=== PATIENT | female | born 1955 | race Caucasian/White ===

== ENCOUNTER → 2020-01-11 | Outpatient (CLI) | payer OTHER ==
[~2020-01-11] MED LIST: ASPI81CH8 PO; ATOR1TAB21 PO; D200CAP2 PO; KELP150T2 PO; MAGN400T3 PO; OCEA200T2 PO; PRED10TA2 PO
== END ==
LOC: M WUC 17:13
PROVIDERS: ATTEND Physician Assistant
DX: Z79.899 Other long term (current) drug therapy (principal)

== ENCOUNTER 2020-01-18 10:10 | Inpatient (IN) | payer OTHER ==
[~2020-01-18] VITALS: Ht 165.1 cm; Wt 109.0 kg
[2020-01-18 10:48] LABS: BASO # 0.1 10^3/uL (0.0-0.2); BASO % 0.8 % (0.0-1.0); EOS # 0.3 10^3/uL (0.0-0.5); EOS % 3.3 % (0.0-3.0); HEMATOCRIT 42.5 % (36.0-47.0); LYMPH # 2.8 10^3/uL (1.5-5.0); LYMPH % 27.1 % (24.0-44.0); MEAN CORPUSCULAR HEMOGLOBIN 30.4 pg (27.0-33.0); MEAN CORPUSCULAR HGB CONC 32.9 g/dl (32.0-36.5); MEAN CORPUSCULAR VOLUME 92.2 fl (80.0-96.0); MONO # 0.7 10^3/uL (0.0-0.8); MONO % 6.5 % (0.0-5.0); NEUTROPHILS # 6.4 10^3/uL (1.5-8.5); NEUTROPHILS % 61.9 % (36.0-66.0); PLATELET COUNT, AUTOMATED 429 10^3/uL (150-450); RED BLOOD COUNT 4.61 10^6/uL (4.00-5.40); WHITE BLOOD COUNT 10.4 10^3/uL (4.0-10.0)
--- NOTE | 2020-01-18 10:55 | REP ---
INDICATION: CVA COMPARISON: None. TECHNIQUE: Portable AP view of the chest FINDINGS: No prior examinations are available for comparison and examination is limited by poor inspiratory effort as well as underpenetration. Left lower lobe airspace disease cannot be excluded. No pneumothorax. IMPRESSION: Limited examination cannot exclude left basilar airspace disease. <Electronically signed by Nahid Garcia > 01/18/20 [id number]
[2020-01-18 10:58] LABS: INR 0.92; PROTHROMBIN TIME 12.6 SECONDS (12.5-14.3)
[2020-01-18 10:59] LABS: PARTIAL THROMBOPLASTIN TIME 29.8 SECONDS (24.2-38.5)
--- NOTE | 2020-01-18 11:01 | REP ---
INDICATION: neuro symptoms. COMPARISON: None. TECHNIQUE: Helical scanning is acquired. 5 mm axial images were reformatted. Coronal MPR images were generated. FINDINGS: Bone window settings demonstrate an intact bony calvarium. There is no evidence of skull fracture or incidental bony calvarial lesion. The visualized paranasal sinuses appear clear. No intraorbital abnormality is seen. On soft tissue window setting images; the lateral, third, and fourth ventricles are normal in size and position. Kelley-white differentiation pattern is normal above and below the tentorium. There are is no evidence of intracranial hemorrhage. No mass, edema, infarction, or midline shift is seen. No extra-axial fluid collection is appreciated. IMPRESSION: Negative noncontrast head CT. <Electronically signed by Floyd Gu > 01/18/20 0161
[2020-01-18] MEDS ORDERED: ISOVUE-370 76% 100ML VIAL As Ordered ONE (11:02)
[2020-01-18 11:20] LABS: BLOOD UREA NITROGEN 13 MG/DL (7-18); CALCIUM LEVEL 9.5 MG/DL (8.8-10.2); CARBON DIOXIDE LEVEL 25 MEQ/L (21-32); CHLORIDE LEVEL 101 MEQ/L (98-107); CK-MB VALUE MASS < 1.0 NG/ML (<3.6); CPK CREATINE PHOSPHOKINASE 55 U/L (26-192); CREATININE FOR GFR 0.84 MG/DL (0.55-1.30); GLOMERULAR FILTRATION RATE > 60.0 (>45); GLUCOSE, FASTING 103 MG/DL (70-100); MB/CK RELATIVE INDEX 1.82 (< OR =4); POTASSIUM SERUM 4.2 MEQ/L (3.5-5.1); SODIUM LEVEL 134 MEQ/L (136-145); TROPONIN I < 0.02 NG/ML (< 0.10)
--- NOTE | 2020-01-18 12:02 | REP ---
INDICATION: neuro symptoms/neck pain ?dissection COMPARISON: None. TECHNIQUE: Contrast enhancement dose is 100 mL of intravenous Isovue 370. Helical scanning is acquired. 2 mm axial images are re-formatted. Coronal and sagittal MPR images are generated. Coronal and sagittal MIP and oblique MPR images are generated. 3D surface rendered images are generated and viewed rotationally. FINDINGS: Study is otherwise unremarkable. IMPRESSION: Tortuosity of the common carotid and internal carotid arteries bilaterally. Minimal vascular calcification. No significant stenosis seen. <Electronically signed by Floyd Gu > 01/18/20 [id number]
--- NOTE | 2020-01-18 12:08 | REP ---
INDICATION: neuro symptoms/neck pain ?dissection. COMPARISON: None. TECHNIQUE: CT contrast dose: 100 ml of intravenous Isovue 370. CT technique: Helical scanning is acquired. 2 mm axial images are reformatted. Maximal intensity projection and multiplanar re-formation images are generated along with 3-D surface rendered color imaging which is viewed rotational. FINDINGS: There is good opacification of the arch intracranial arterial tree. The distal cerebral arteries are patent and unremarkable. Basilar artery is slightly tortuous. Posterior cerebral and superior cerebellar vessels are unremarkable. The distal internal carotid arteries are intact and widely patent. No aneurysm is seen. Anterior and middle cerebral arteries are unremarkable. No vessel cut off or filling defect is seen. No aneurysm or arteriovenous malformation is noted. The dural sinuses are intact without filling defect or evidence stenosis. IMPRESSION: Unremarkable CT angiography of the brain. <Electronically signed by Floyd Gu > 01/18/20 [id number]
[2020-01-18] MEDS ORDERED: ASPIRIN 81 MG CHEW TABLET PO ONE (13:15)
[2020-01-18 13:51] LABS: CHOLESTEROL LEVEL 225 MG/DL (<200); CHOLESTEROL RISK RATIO 5.357 (<5); HDL CHOLESTEROL 42 MG/DL (>40); LDL CHOLESTEROL 155 MG/DL (<100); NON-HDL-C 183 MG/DL; TRIGLYCERIDES LEVEL 139 MG/DL (<150)
[2020-01-18] MEDS ORDERED: KELP150T2 PO (14:29)
[2020-01-18] MEDS ORDERED: OCEA200T2 PO (14:29)
[2020-01-18] MEDS ORDERED: D200CAP2 PO (14:29)
[2020-01-18] MEDS ORDERED: MAGN400T3 PO (14:29)
[2020-01-18 15:25] LABS: HEMOGLOBIN A1c 5.8 %
[2020-01-18 15:57] LABS: FREE T4 0.97 NG/DL (0.76-1.46)
[2020-01-18 16:00] VITALS: BP 130/82
--- NOTE | 2020-01-18 16:13 | HPEPDOC ---
[facility] Medical History & Physical Date of Admission Jan 18, 2020 Date of Service: Jan 18, 2020 Attending Physician: KAISER PUENTE MD History and Physical CHIEF COMPLAINT: Right sided facial weakness and slurred speech HISTORY OF PRESENT ILLNESS: Ms. Lopez is a 64 year old female with a PMH of arthritis and hypothyroidism is presenting with right sided facial weakness that started last night and slurred speech of one hour duration this morning. Pt states that 2 weeks ago she was vacuuming and felt a sharp pain in neck and down her back, 4 days after that incident, she started experiencing double vision and her right eye felt like it shutters. She saw an head porter and they put a patch over her right eye and was instructed to get an MRI and follow up. MRI was scheduled for next week and follow up appointment is tomorrow. However, the right sided facial weakness last night and slurred speech this morning is what prompted her to come to the ED. Last known well time was 8pm on 01/17/2020. Last night she states that she could not smile or grimace equally. This morning she admits to slurred speech and inability to spit this morning when brushing teeth. Pt states her speech slurs periodically and transiently. Pt also admits to pain in left forearm, ankles and back in which she describes it as transient, sudden, sharp and stabbing and attributes it to a pinched nerve Pt admits to headache following onset of double vision 2 weeks ago, attributing it to eye fatigue and diffuse abdominal pain that feels like pressure and gas. Pt denies weakness, numbness, tingling, balance difficulties, fever, chills, dizziness, chest pain or trouble breathing. Pt denies hx of stroke and takes a chewable 81mg daily aspirin. PAST MEDICAL HISTORY: Arthritis Hypothyroidism PAST SURGICAL HISTORY: Bilateral knee replacement Left Rotator cuff repair Tubal ligation SOCIAL HISTORY: Tobacco use smoked cigarettes between the ages of [age] years old. Alcohol occasionally, 2 glasses of wine a month Recreational drug use none FAMILY HISTORY: Father Hx of Parkinsons disease and HLD Mother Hx of diabetes and dementia Paternal grandfather unknown heart condition, at age 60 due to heart condition Paternal grandmother - atherosclerosis ALLERGIES: Sulfa containing medications, cockroaches, dust mites, shell fish REVIEW OF SYSTEMS: CONSTITUTIONAL: Denies fever, chills, and weight changes. HEENT: Admits to headache following onset of double vision. Reports seeing a g ray cloth out of patched eye in low light condition that she knew wasnt there. CARDIOVASCULAR: Denies chest pain, palpitations, and racing heart. RESPIRATORY: Denies trouble breathing, cough, and wheezing. GASTROINTESTINAL: Admits to diffuse, migratory abdominal pain attributed to gas. Denies diarrhea, constipation, changes to BM, nausea and blood in stool. GENITOURINARY: Denies dysuria and hematuria. SKIN: Denies skin changes, rashes, lesions, wounds and itching. MUSCULOSKELETAL: Admits to joint pain from arthritis and pain down spine. NEUROLOGICAL: Denies numbness and tingling in hands and feet. Admits to slurred speech and left facial weakness and diplopia. PSYCHIATRIC: Denies anxiety and depression. OBJECTIVE: CONSTITUTIONAL: Appears comfortable lying in bed with no respiratory distress. HEENT: PERRL. Difficulty tracking laterally with right eye (weakness in right lateral rectus muscle). No difficulty swallowing. Moist mucus membranes. NECK: Supple. No lymphadenopathy present. CARDIOVASCULAR: S1S2 normal. RRR. No murmurs, rubs or gallops. No edema noted. RESPIRATORY: Clear to auscultation in all lung harris. No wheezing, rhonchi or rales appreciated. GASTROINTESTINAL: Soft, nontender, nondistended abdomen. Normoactive bowel sounds heard in all 4 quadrants. SKIN: No rashes, lesions or wounds appreciated. MUSCULOSKELETAL: Normal ROM in all joints. NEUROLOGICAL: AAO x3, Inward right eye deviation and unable to track laterally (CN ). Inability to use facial muscles on left side of face with sparing of forehead (CN VII). All other CN intact. 5/5 muscle strength equal and bilateral in upper and lower extremities. PSYCHIATRIC: Normal mood and affect LABORATORY DATA: See below MICROBIOLOGY: See below ASSESSMENT: Ms. Lopez is a 64 year old female with a PMH of arthritis and hypothyroidism presents with right sided facial weakness and slurred speech was found to have weakness in CN and VII concerning for CVA. Pt admitted for further stroke workup. PLAN: # Left facial nerve weakness secondary to CVA vs [place] palsy - Head Ct was negative. CTA head and neck was negative. - MRI w/o contrast pending - High total cholesterol 225 mg/dL. High LDL cholesterol 155 mg/dL. High cholesterol/HDL ratio 5.357. - PT, INR and aPTT wnl. - Normal ECG. Continue 48 hr telemetry. Consider computer terminal operator cardiac monitoring if no stroke cause is identified - Neuro checks Q4H - ASA 325 mg PO daily. Atorvastatin 40 mg PO. Consider starting Plavix after 24 hours. - Echo with bubble study pending - PT/OT/ST evaluations - ED provider discussed case with Dr. Watson, neurology, who recommended r/o Lyme disease and Sarcoidosis - Lyme disease IgG/IgM antibodies pending - FREDY levels pending # Diplopia - Right abducens nerve weakness - Following ophthalmology - Unclear if this is related to her acute presenting symptoms # Hypothyroidism - Not currently being treated with medication. Was on levothyroxine but felt it wasnt helping so she discontinued - TSH and T4 level pending # Obesity - BMI 40.3 kg/m2 - complicates care. f/u outpatient with PCP DVT PROPHYLAXIS: Lovenox 40 mg daily DISPOSITION: Pending MRI results, PT/OT/ST eval and clinical improvment Vital Signs Vital Signs Date Time Temp Pulse Resp B/P (MAP) Pulse Ox O2 Delivery O2 Flow Rate FiO2 01/18/20 14:30 65 133/80 (97) 99 01/18/20 10:37 16 01/18/20 10:11 98.7 Room Air Laboratory Data Labs 24H Laboratory Tests 2 01/18/20 10:34: Prothrombin Time 12.6, Prothromb Time International Ratio 0.92, Activated Partial Thromboplast Time 29.8, Anion Gap 8, Glomerular Filtration Rate > 60.0, Calcium Level 9.5, Total Creatine Kinase 55, Creatine Kinase MB < 1.0, Creatine Kinase MB Relative Index 1.82, Troponin I < 0.02, Triglycerides Level 139, Total Cholesterol 225H, LDL Cholesterol 155H, Non-HDL Cholesterol (LDL + VLDL) 183, Total HDL Cholesterol 42, Cholesterol/HDL Ratio 5.357H, Thyroid Stimulating Hormone (TSH) 8.100H, Free Thyroxine 0.97 01/18/20 10:35: Immature Granulocyte % (Auto) 0.4, Neutrophils (%) (Auto) 61.9, Lymphocytes (%) (Auto) 27.1, Monocytes (%) (Auto) 6.5H, Eosinophils (%) (Auto) 3.3H, Basophils (%) (Auto) 0.8, Neutrophils # (Auto) 6.4, Lymphocytes # (Auto) 2.8, Monocytes # (Auto) 0.7, Eosinophils # (Auto) 0.3, Basophils # (Auto) 0.1, Nucleated Red Blood Cells % (auto) 0.0, Estimated Mean Plasma Glucose 120H, Hemoglobin A1c 5.8 01/18/20 11:17: Bedside Glucose (Misc Panel) 91 01/18/20 11:18: Coronavirus (COVID-19)(PCR) NEGATIVE CBC/BMP Laboratory Tests 01/18/20 10:34 01/18/20 10:35 Home Medications Scheduled Cholecalciferol (Vitamin D3) (Vitamin D3) 50 Mcg Capsule, 2,000 UNITS PO QHS Iodine (Kelp) 150 Mcg Tablet, 150 MCG PO QHS Magnesium Oxide (Magnesium Oxide) 400 Mg Tablet, 400 MG PO QHS Selenium (Selenium) 200 Mcg Tablet, 200 MCG PO QHS Allergies Coded Allergies: Sulfa (Sulfonamide Antibiotics) (Verified Allergy, Unknown, hives, 01/18/20) shellfish derived (Verified Allergy, Unknown, hives/swelling, 01/18/20) A-FIB/CHADSVASC A-FIB History Current/History of A-Fib/PAF?: NEVILLE Jiang D.O. Jan 18, 2020 16:13
--- NOTE | 2020-01-18 16:38 | REPVR ---
PROCEDURE INFORMATION: Exam: MR Head Without Contrast Exam date and time: 01/18/2020 3:37 PM Age: 64 years old Clinical indication: Weakness, facial; Additional info: Facial weak left/eom impaired right TECHNIQUE: Imaging protocol: MR of the head without contrast. COMPARISON: CT Head without contrast 01/18/2020 10:36 AM FINDINGS: Brain: Normal. No acute infarct. No hemorrhage. No significant white matter disease. No edema. Cerebral ventricles: Normal. No ventriculomegaly. Bones/joints: Unremarkable. Paranasal sinuses: Normal as visualized. No acute sinusitis. Mastoid air cells: Normal as visualized. No mastoid effusion. Orbits: Unremarkable. Soft tissues: Unremarkable. IMPRESSION: No acute findings. Electronically signed by: Alo Jones On 01/18/2020 16:38:30 PM
--- NOTE | 2020-01-18 16:42 | REPVR ---
PROCEDURE INFORMATION: Exam: MR Angiogram Head Without Contrast, Arteries Exam date and time: 01/18/2020 3:16 PM Age: 64 years old Clinical indication: Weakness; Additional info: Facial weakness left eom impaired right TECHNIQUE: Imaging protocol: MR angiogram head without contrast. Exam focused on the arteries. COMPARISON: CT ANGIO HEAD 01/18/2020 11:27 AM FINDINGS: ANTERIOR CIRCULATION: Right internal carotid artery: Intracranial segment is patent with no significant stenosis. No aneurysm. Right middle cerebral artery: No occlusion or significant stenosis. No aneurysm. Right anterior cerebral artery: No occlusion or significant stenosis. No aneurysm. Left internal carotid artery: Intracranial segment is patent with no significant stenosis. No aneurysm. Left middle cerebral artery: No occlusion or significant stenosis. No aneurysm. Left anterior cerebral artery: No occlusion or significant stenosis. No aneurysm. POSTERIOR CIRCULATION: Right vertebral artery: No occlusion or significant stenosis. No aneurysm. Left vertebral artery: No occlusion or significant stenosis. No aneurysm. Basilar artery: No occlusion or significant stenosis. No aneurysm. Right posterior cerebral artery: No occlusion or significant stenosis. No aneurysm. Left posterior cerebral artery: No occlusion or significant stenosis. No aneurysm. Other vasculature: origin of bilateral posterior cerebral arteries. IMPRESSION: No occlusion or stenosis of intracranial arteries. Electronically signed by: Alo Jones On 01/18/2020 16:42:48 PM
[2020-01-18] MEDS: ACETAMINOPHEN TAB 650MG DOSE (2X325MG) PO PRN ×2 (17:47→21:57)
--- NOTE | 2020-01-18 19:08 | ECGEPIP ---
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
[2020-01-18 20:00] VITALS: BP_SYST 126; BP_SYST 132; BP_DIAS 77; BP_DIAS 85
[2020-01-18 20:18] VITALS: BP 141/77
[2020-01-18] MEDS ORDERED: ATORVASTATIN 20 MG TAB PO SCH (21:00)
[2020-01-18] MEDS ORDERED: LIDOCAINE 5% (LIDODERM) PATCH TD ONE (22:00)
[2020-01-18] MEDS ORDERED: traMADol 50 MG TAB PO ONE (23:30)
[2020-01-19] VITALS: BP_SYST 126; BP_SYST 135; BP_DIAS 77; BP_DIAS 79
[2020-01-19 04:00] VITALS: BP 138/86
[2020-01-19 06:00] LABS: HEMATOCRIT 38.5 % (36.0-47.0); HEMOGLOBIN 12.6 g/dl (12.0-15.5); MEAN CORPUSCULAR HEMOGLOBIN 29.9 pg (27.0-33.0); MEAN CORPUSCULAR HGB CONC 32.7 g/dl (32.0-36.5); MEAN CORPUSCULAR VOLUME 91.4 fl (80.0-96.0); PLATELET COUNT, AUTOMATED 371 10^3/uL (150-450); RED BLOOD COUNT 4.21 10^6/uL (4.00-5.40); WHITE BLOOD COUNT 9.1 10^3/uL (4.0-10.0)
[2020-01-19 06:27] LABS: BLOOD UREA NITROGEN 17 MG/DL (7-18); CALCIUM LEVEL 9.2 MG/DL (8.8-10.2); CARBON DIOXIDE LEVEL 27 MEQ/L (21-32); CHLORIDE LEVEL 100 MEQ/L (98-107); CREATININE FOR GFR 0.72 MG/DL (0.55-1.30); GLOMERULAR FILTRATION RATE > 60.0 (>45); GLUCOSE, FASTING 109 MG/DL (70-100); POTASSIUM SERUM 4.1 MEQ/L (3.5-5.1); SODIUM LEVEL 132 MEQ/L (136-145)
[2020-01-19 08:00] VITALS: BP 182/84
[2020-01-19] MEDS ORDERED: ENOXAPARIN 40MG/0.4ML SYRINGE (J1650 PER 10MG) SC SCH (09:00)
[2020-01-19] MEDS ORDERED: ASPIRIN 81 MG CHEW TABLET PO SCH (09:00)
[2020-01-19] MEDS ORDERED: **NOTE PATIENT COMMENT** MISC XX ONE (10:00)
[2020-01-19 12:00] VITALS: BP 148/82
[2020-01-19] MEDS: ACETAMINOPHEN TAB 650MG DOSE (2X325MG) PO PRN (12:29)
[2020-01-19 15:07] LABS: ANGIOTENSIN 1 CONVERTING ENZYM 39 U/L (14-82); Lyme Disease IgG/IgM Antibodie <0.91 ISR (0.00-0.90); Lyme Disease IgM Ab Quantitati <0.80 index (0.00-0.79)
[2020-01-19] MEDS ORDERED: ATOR1TAB21 PO (15:51)
[2020-01-19] MEDS ORDERED: PRED10TA2 PO (15:51)
[2020-01-19] MEDS ORDERED: ASPI81CH8 PO (15:51)
--- NOTE | 2020-01-19 17:58 | DS.PDOC ---
Discharge Summary General Date of Admission Jan 18, 2020 at 14:07 Date of Discharge 01/19/2020 Attending Physician: KAISER PUENTE MD Discharge Summary Discharge Summary: Haritha Lopez PROCEDURES PERFORMED DURING STAY: NONE ADMITTING DIAGNOSIS: CVA vs. [place] Palsy Diplopia Arthritis Hypothyroidism, not on medication DISCHARGE DIAGNOSIS: [place] Palsy Diplopia Arthritis Subclinical hypothyroidism, not on medication COMPLICATIONS/CHIEF COMPLAINT: Right sided facial weakness and slurred speech HISTORY OF PRESENT ILLNESS: Ms. Lopez is a 64 year old female with a PMH of arthritis and hypothyroidism is presenting with right sided facial weakness that started last night and slurred speech of one hour duration this morning. Pt states that 2 weeks ago she was vacuuming and felt a sharp pain in neck and down her back, 4 days after that incident, she started experiencing double vision and her right eye felt like it shutters. She saw an machine applicator cementer and they put a patch over her right eye and was instructed to get an MRI and follow up. MRI was scheduled for next week and follow up appointment is tomorrow. However, the right sided facial weakness last night and slurred speech this morning is what prompted her to come to the ED. Last known well time was 8pm on 01/17/2020. Last night she states that she could not smile or grimace equally. This morning she admits to slurred speech and inability to spit this morning when brushing teeth. Pt states her speech slurs periodically and transiently. Pt also admits to pain in left forearm, ankles and back in which she describes it as transient, sudden, sharp and stabbing and attributes it to a pinched nerve Pt admits to headache following onset of double vision 2 weeks ago, attributing it to eye fatigue and diffuse abdominal pain that feels like pressure and gas. Pt denies weakness, numbness, tingling, balance difficulties, fever, chills, dizziness, chest pain or trouble breathing. Pt denies hx of stroke and takes a chewable 81mg daily aspirin. HOSPITAL COURSE: Ms. Lopez was admitted to the hospital to rule out a CVA. On admission, pt had inability to use facial muscles on left side of face indicating weakness of left CN VII. Pt also admitted to unilateral diplopia of right eye and she has a patch covering it, which resolves the diplopia. Stroke work-up was started and aspirin 325mg PO and Atorvastatin 40 mg PO were begun. ECG was normal and 48 hr telemetry was ordered to monitor for any cardiac cali nts. CT head and CT-A head and neck were normal with no acute findings. Per neurology recommendation to ED provider, Lyme disease IgG/IgM antibodies and FREDY levels were ordered as possible etiology for [place] palsy, and both were negative. Significant lab work demonstrated high total cholesterol 225 mg/dL, high LDL cholesterol 155 mg/dL, High cholesterol/LDL ratio 5.357. MRI w/o contrast was negative with no acute findings. Echo with bubble study is pending. At this time, CVA was considered not likely and more likely [place] palsy. Per neurology recommendations, pt likely has [place] palsy and should be discharged with an oral prednisone taper, Atorvastatin 20 mg and Aspirin 81 mg. Pt was deemed stable for discharge and instructed to follow up with her PCP and continue seeing machine applicator cementer for the diplopia. DISCHARGE MEDICATIONS: Please see below. ALLERGIES: Please see below. PHYSICAL EXAMINATION ON DISCHARGE: VITAL SIGNS: Please see below. GENERAL: Appears comfortable lying in bed with no respiratory distress. HEENT: PERRL. EOM intact. Moist mucus membranes. NECK: No difficulty swallowing. Supple. No lymphadenopathy present. CARDIOVASCULAR EXAMINATION: S1S2 normal. RRR. No murmurs, rubs or gallops. No edema noted RESPIRATORY EXAMINATION: Clear to auscultation in all lung harris. No wheezing, rhonchi or rales appreciated. ABDOMINAL EXAMINATION: Soft, nontender, nondistended abdomen. Normoactive bowel sounds heard in all 4 quadrants. EXTREMITIES: Normal ROM in all joints. SKIN: No rashes, lesions or wounds appreciated. NEUROLOGICAL EXAMINATION: AAO x3 Inability to use facial muscles on left side of face, including unequal strength in forehead(CN VII). All other CN intact. 5/5 muscle strength equal and bilateral in upper and lower extremities. PSYCHIATRIC EXAMINATION: Normal mood and affect. LABORATORY DATA: Please see below. IMAGING: (per radiologist interpretation) - CXR (01/18/2020) - Limited examination cannot exclude left basilar airspace disease. - CT head w/o contrast (01/18/2020) - Negative noncontrast head CT. - CTA Neck (01/18/2020) - Tortuosity of the common carotid and internal carotid arteries bilaterally. Minimal vascular calcification. No significant stenosis seen. - CTA Head (01/18/2020) - Unremarkable CT angiography of the brain. - Brain MRI w/o contrast (01/18/2020) - No acute findings. - MRA brain w/o contrast - No occlusion or stenosis of intracranial arteries. PROGNOSIS: Fair ACTIVITY: As tolerated DIET: Regular DISPOSITION/DISCHARGE PLAN: discharge to home DISCHARGE INSTRUCTIONS: 1. Follow-up with your PCP in 7-10 days 2. Follow up with Opthalmology in 1 week 3. Referral to neurology for [place]'s palsy 4. Please sweet pickled fruit maker and complete steriod taper for [place]'s palsy. 5. Please take all medications as prescribed. 6. If your symptoms return or your condition worsens, please call your PCP or return to the ED for further evaluation. ITEMS TO FOLLOWUP ON OUTPATIENT: -Follow up with PCP regarding cholesterol management, MSK pain, and elevated TSH -Follow up with ophthalmology regarding diplopia DISCHARGE CONDITION: Stable. TIME SPENT ON DISCHARGE: Greater than 35 minutes. Vital Signs/I&Os Vital Signs Date Time Temp Pulse Resp B/P (MAP) Pulse Ox O2 Delivery O2 Flow Rate FiO2 01/19/20 12:00 97.9 63 18 148/82 (104) 98 Room Air I&O- Last 24 Hours up to 6 AM 01/19/20 06:00 Intake Total 300 ml Balance 300 ml Laboratory Data Labs 24H Laboratory Tests 2 01/19/20 05:39: Nucleated Red Blood Cells % (auto) 0.0, Anion Gap 5L, Glomerular Filtration Rate > 60.0, Calcium Level 9.2 CBC/BMP Laboratory Tests 01/19/20 05:39 Discharge Medications Scheduled Aspirin (Children's Aspirin) 81 Mg Tab.chew, 81 MG PO DAILY Atorvastatin Calcium (Atorvastatin Calcium) 20 Mg Tablet, 20 MG PO QHS Cholecalciferol (Vitamin D3) (Vitamin D3) 50 Mcg Capsule, 2,000 UNITS PO QHS, (Reported) Iodine (Kelp) 150 Mcg Tablet, 150 MCG PO QHS, (Reported) Magnesium Oxide (Magnesium Oxide) 400 Mg Tablet, 400 MG PO QHS, (Reported) Prednisone (Prednisone) 10 Mg Tablet, 10 MG PO TAPER Take 6 tabs daily x 2 days, then 4 tabs daily x 2 days, then 2 tabs daily x 2 days, then 1 tab daily x 2 days and stop Selenium (Selenium) 200 Mcg Tablet, 200 MCG PO QHS, (Reported) Allergies Coded Allergies: Sulfa (Sulfonamide Antibiotics) (Verified Allergy, Unknown, hives, 01/18/20) shellfish derived (Verified Allergy, Unknown, hives/swelling, 01/18/20) NEVILLE TADEO D.O. Jan 19, 2020 16:25
[2020-01-19] MEDS ORDERED: ATORVASTATIN 20 MG TAB PO SCH (21:00)
[2020-01-20] MEDS ORDERED: TRAM50TA2 PO (11:37)
== END 2020-01-19 17:42 | disposition home or self-care (01) | DRG 48 ==
LOC: M ED 10:10 → M ED INP 14:07 → ENRESERV 14:36 → M PCU 15:30
PROVIDERS: ADMIT Internal Medicine; ATTEND Internal Medicine
DX: G51.0 Bell's palsy (principal); Z68.41 Body mass index [BMI] 40.0-44.9, adult; M19.90 Unspecified osteoarthritis, unspecified site; H53.2 Diplopia; Z79.899 Other long term (current) drug therapy; Z88.2 Allergy status to sulfonamides; Z91.013 Allergy to seafood; Z96.653 Presence of artificial knee joint, bilateral; Z87.891 Personal history of nicotine dependence; E03.9 Hypothyroidism, unspecified; Z91.14 Patient's other noncompliance with medication regimen; E66.9 Obesity, unspecified

== ENCOUNTER 2020-01-20 06:43 | Emergency (ER) | payer OTHER ==
[~2020-01-20] VITALS: Ht 165.1 cm; Wt 110.7 kg
[2020-01-20] MEDS ORDERED: NS 500 ML IV ONE (07:30)
[2020-01-20] MEDS ORDERED: ONDANSETRON 4MG/2ML VIAL IV ONE (07:30)
[2020-01-20 08:14] LABS: BASO # 0.1 10^3/uL (0.0-0.2); BASO % 0.4 % (0.0-1.0); EOS # 0.1 10^3/uL (0.0-0.5); EOS % 0.6 % (0.0-3.0); HEMATOCRIT 42.2 % (36.0-47.0); HEMOGLOBIN 14.4 g/dl (12.0-15.5); LYMPH # 2.1 10^3/uL (1.5-5.0); LYMPH % 17.5 % (24.0-44.0); MEAN CORPUSCULAR HEMOGLOBIN 30.6 pg (27.0-33.0); MEAN CORPUSCULAR HGB CONC 34.1 g/dl (32.0-36.5); MEAN CORPUSCULAR VOLUME 89.6 fl (80.0-96.0); MONO # 0.8 10^3/uL (0.0-0.8); MONO % 6.3 % (0.0-5.0); NEUTROPHILS # 9.2 10^3/uL (1.5-8.5); NEUTROPHILS % 74.9 % (36.0-66.0); PLATELET COUNT, AUTOMATED 343 10^3/uL (150-450); RED BLOOD COUNT 4.71 10^6/uL (4.00-5.40); WHITE BLOOD COUNT 12.2 10^3/uL (4.0-10.0)
[2020-01-20] MEDS ORDERED: MORPHINE 2 MG/ML 1ML VIAL (J2270) IV ONE (08:15)
[2020-01-20] MEDS ORDERED: predniSONE 20 MG TAB PO ONE (08:15)
[2020-01-20] MEDS ORDERED: ACETAMINOPHEN 500 MG TAB PO ONE (08:30)
[2020-01-20 08:41] LABS: ALBUMIN 3.8 GM/DL (3.2-5.2); ALT/SGPT 18 U/L (12-78); BILIRUBIN,DIRECT < 0.1 MG/DL (0.0-0.2); BILIRUBIN,TOTAL 0.8 MG/DL (0.2-1.0); BLOOD UREA NITROGEN 17 MG/DL (7-18); CALCIUM LEVEL 9.1 MG/DL (8.8-10.2); CARBON DIOXIDE LEVEL 21 MEQ/L (21-32); CHLORIDE LEVEL 98 MEQ/L (98-107); CK-MB VALUE MASS < 1.0 NG/ML (<3.6); CPK CREATINE PHOSPHOKINASE 130 U/L (26-192); CREATININE FOR GFR 0.67 MG/DL (0.55-1.30); GLOMERULAR FILTRATION RATE > 60.0 (>45); GLUCOSE, FASTING 106 MG/DL (70-100); LIPASE 160 U/L (73-393); MB/CK RELATIVE INDEX 0.77 (< OR =4); SODIUM LEVEL 128 MEQ/L (136-145); TOTAL PROTEIN 8.6 GM/DL (6.4-8.2); TROPONIN I < 0.02 NG/ML (< 0.10)
--- NOTE | 2020-01-20 08:53 | REP ---
INDICATION: RUQ pain into mid back. COMPARISON: None. TECHNIQUE: Transabdominal right upper quadrant sonography. FINDINGS: Scanning through the right upper quadrant of the abdomen demonstrates a normal sized, thin-walled gallbladder without evidence of stone or polyp. Common bile duct is normal measuring 0.5 cm in greatest diameter. No focal liver lesion is seen. Liver size is normal. No pancreatic abnormality is observed. No right renal abnormality is seen. There is no evidence of ascites. The right kidney measures 9.3 x 4.8 x 4.9 cm. IMPRESSION: Negative right upper quadrant sonography. <Electronically signed by Floyd Gu > 01/20/20 [id number]
[2020-01-20] MEDS ORDERED: ISOVUE-370 76% 100ML VIAL As Ordered ONE (09:16)
--- NOTE | 2020-01-20 09:50 | REP ---
INDICATION: severe upper abd pain into back, n, v. COMPARISON: Today's right upper quadrant sonography.. TECHNIQUE: Helical scanning was acquired and 4 mm axial images are re-formatted. Coronal and sagittal MPR images were generated and reviewed. The contrast enhancement dose is 100 mL of intravenous Isovue 370. FINDINGS: Preliminary digital contracts law professor radiograph is unremarkable. Normal bowel gas pattern. The lung bases are clear on axial CT images. The liver is normal in size homogeneous in texture. Spleen is normal in size and homogeneous as well. No abnormality is noted in the pancreas. There is a descending duodenal diverticulum. No evidence of stent gallstone by CT. Normal adrenal glands are seen bilaterally. Kidneys enhance symmetrically and are morphologically intact. No retroperitoneal mass or adenopathy is observed. Normal caliber aorta. There is left colonic diverticulosis without CT evidence of diverticulitis. Small and large bowel loops are otherwise unremarkable. There is evidence of a radiopaque appendicolith in the right lower quadrant but there is no evidence of appendiceal and inflation dilation or fluid distention. No uterine or ovarian abnormality is seen. Urinary bladder is intact. There are degenerative spondylosis changes in the lumbar spine. No acute bony abnormality is appreciated. IMPRESSION: Left colonic diverticulosis without CT evidence of diverticulitis. No evidence of appendiceal inflammation. Small appendicollith. Otherwise negative CT abdomen and pelvis with IV contrast. <Electronically signed by Floyd Gu > 01/20/20 0997
[2020-01-20] MEDS ORDERED: traMADol 50 MG TAB As Ordered ONE (10:50)
[2020-01-20] MEDS ORDERED: traMADol 50 MG TAB PO ONE (11:00)
[2020-01-20] MEDS ORDERED: TRAM50TA2 PO (11:37)
[2020-01-20 11:40] VITALS: BP 121/73
== END 2020-01-20 10:20 | disposition home or self-care (01) ==
LOC: M ED 06:43
DX: E87.0 Hyperosmolality and hypernatremia (principal); K57.30 Diverticulosis of large intestine without perforation or abscess without bleeding; G51.0 Bell's palsy; E78.5 Hyperlipidemia, unspecified; M19.90 Unspecified osteoarthritis, unspecified site; Z79.899 Other long term (current) drug therapy; Z91.013 Allergy to seafood; Z88.2 Allergy status to sulfonamides; Z83.3 Family history of diabetes mellitus
CPT/HCPCS: 36415; 74177; 76705; 80048; 80076; 82550; 82553; 83690; 83735; 84484; 85025; 96374; 99284; J2405; Q9967

== ENCOUNTER → 2020-02-02 | Outpatient (CLI) | payer OTHER ==
[~2020-02-02] MED LIST changes: +TRAM50TA2 PO
== END ==
LOC: M WUC 14:43
PROVIDERS: ATTEND Ophthalmology
DX: Z11.9 Encounter for screening for infectious and parasitic diseases, unspecified (principal)

== ENCOUNTER → 2020-05-12 | Outpatient (CLI) | payer OTHER ==
[2020-05-12 11:27] LABS: BASO # 0.1 10^3/uL (0.0-0.2); BASO % 1.8 % (0.0-1.0); EOS # 0.5 10^3/uL (0.0-0.5); EOS % 7.2 % (0.0-3.0); HEMATOCRIT 41.8 % (36.0-47.0); HEMOGLOBIN 13.5 g/dl (12.0-15.5); LYMPH # 2.8 10^3/uL (1.5-5.0); LYMPH % 39.6 % (24.0-44.0); MEAN CORPUSCULAR HEMOGLOBIN 30.5 pg (27.0-33.0); MEAN CORPUSCULAR HGB CONC 32.3 g/dl (32.0-36.5); MEAN CORPUSCULAR VOLUME 94.4 fl (80.0-96.0); MONO # 0.6 10^3/uL (0.0-0.8); MONO % 7.9 % (2.0-8.0); NEUTROPHILS # 3.1 10^3/uL (1.5-8.5); NEUTROPHILS % 43.1 % (36.0-66.0); PLATELET COUNT, AUTOMATED 398 10^3/uL (150-450); RED BLOOD COUNT 4.43 10^6/uL (4.00-5.40); WHITE BLOOD COUNT 7.2 10^3/uL (4.0-10.0)
[2020-05-12 12:24] LABS: ALBUMIN 4.1 GM/DL (3.2-5.2); ALT/SGPT 22 U/L (12-78); BILIRUBIN,TOTAL 0.6 MG/DL (0.2-1.0); BLOOD UREA NITROGEN 14 MG/DL (7-18); CARBON DIOXIDE LEVEL 29 MEQ/L (21-32); CHLORIDE LEVEL 106 MEQ/L (98-107); CHOLESTEROL LEVEL 244 MG/DL (<200); CHOLESTEROL RISK RATIO 5.304 (<5); CREATININE FOR GFR 0.76 MG/DL (0.55-1.30); GLOMERULAR FILTRATION RATE > 60.0 (>45); GLUCOSE, FASTING 93 MG/DL (70-100); HDL CHOLESTEROL 46 MG/DL (>40); LDL CHOLESTEROL 166 MG/DL (<100); NON-HDL-C 198 MG/DL; POTASSIUM SERUM 5.1 MEQ/L (3.5-5.1); SODIUM LEVEL 140 MEQ/L (136-145); TOTAL PROTEIN 7.4 GM/DL (6.4-8.2); TRIGLYCERIDES LEVEL 158 MG/DL (<150)
== END ==
LOC: M WUC 09:38
PROVIDERS: ATTEND Family Medicine
DX: K57.90 Diverticulosis of intestine, part unspecified, without perforation or abscess without bleeding (principal); Z86.69 Personal history of other diseases of the nervous system and sense organs; E03.9 Hypothyroidism, unspecified

== ENCOUNTER → 2020-08-01 | Outpatient (CLI) | payer OTHER | LOC: M WUC 10:49 | PROVIDERS: ATTEND Family Medicine | DX: E03.9 Hypothyroidism, unspecified (principal) ==

== ENCOUNTER → 2020-11-08 | Outpatient (CLI) | payer OTHER ==
[2020-11-08 20:32] LABS: FREE T4 0.89 NG/DL (0.76-1.46); THYROID STIMULATING HORMONE 6.24 uIU/ML (0.358-3.740)
[2020-11-08 20:33] LABS: THYROGLOBULIN ANTIBODY 74.1 U/ML (<60.0)
== END ==
LOC: M WUC 15:14
PROVIDERS: ATTEND Family Medicine
DX: E03.9 Hypothyroidism, unspecified (principal); E78.49 Other hyperlipidemia

== ENCOUNTER → 2023-01-01 | Outpatient (CLI) | payer OTHER ==
[~2023-01-01] MED LIST changes: -MAGN400T3 PO; +MAGN400T33 PO
[2023-01-01 13:09] LABS: HEMOGLOBIN A1c 5.4 % (4.0-6.0)
[2023-01-01 13:10] LABS: BLOOD UREA NITROGEN 17 MG/DL (9-23); CALCIUM LEVEL 9.3 MG/DL (8.3-10.6); CARBON DIOXIDE LEVEL 27 MMOL/L (20-31); CHLORIDE LEVEL 103 MMOL/L (98-107); CREATININE FOR GFR 0.72 MG/DL (0.55-1.30); GLOMERULAR FILTRATION RATE > 60.0 (>45); GLUCOSE, FASTING 92 MG/DL (74-106); POTASSIUM SERUM 4.1 MMOL/L (3.5-5.1); SODIUM LEVEL 140 MMOL/L (136-145)
[2023-01-01 13:17] LABS: THYROID STIMULATING HORMONE 4.391 uIU/ML (0.55-4.78)
== END ==
LOC: M WUC 10:09
PROVIDERS: ATTEND Family Medicine
DX: Z00.00 Encounter for general adult medical examination without abnormal findings (principal); Z12.39 Encounter for other screening for malignant neoplasm of breast; E06.5 Other chronic thyroiditis; K57.90 Diverticulosis of intestine, part unspecified, without perforation or abscess without bleeding; E66.01 Morbid (severe) obesity due to excess calories; E78.49 Other hyperlipidemia; R73.03 Prediabetes

== ENCOUNTER → 2024-06-27 | Outpatient (CLI) | payer OTHER | LOC: M RAD 12:23 | PROVIDERS: ATTEND Physician Assistant Medical | DX: H93.A2 Pulsatile tinnitus, left ear (principal) ==